=== PATIENT | male | born 1955 | race Caucasian/White ===

== ENCOUNTER 2021-09-29 12:15 | Emergency (ER) | payer MEDICARE | END 2021-09-29 13:00 | disposition home or self-care (01) | LOC: ERS 12:15 | DX: J95.03 Malfunction of tracheostomy stoma (principal); I10 Essential (primary) hypertension; Z85.21 Personal history of malignant neoplasm of larynx; Z79.899 Other long term (current) drug therapy | CPT/HCPCS: 99283 ==

== ENCOUNTER 2021-10-04 21:39 | Emergency (ER) | payer MEDICARE | END 2021-10-05 00:01 | disposition home or self-care (01) | LOC: ERS 21:39 | DX: J95.03 Malfunction of tracheostomy stoma (principal); T17.490A Other foreign object in trachea causing asphyxiation, initial encounter; I10 Essential (primary) hypertension; Z79.899 Other long term (current) drug therapy | CPT/HCPCS: 71045 ==

== ENCOUNTER 2022-02-07 10:15 | Outpatient (CLI) | payer MEDICARE, MEDICAID | END 2022-02-07 10:16 | disposition home or self-care (01) | LOC: PET 10:15 | PROVIDERS: ATTEND Internal Medicine Hematology & Oncology | DX: C32.1 Malignant neoplasm of supraglottis (principal) | CPT/HCPCS: 78815; A9552 ==

== ENCOUNTER 2022-02-18 09:29 | Outpatient (CLI) | payer MEDICARE, MEDICAID | END 2022-02-18 09:30 | disposition home or self-care (01) | LOC: SCSMRI 09:29 | PROVIDERS: ATTEND Internal Medicine Hematology & Oncology | DX: C32.1 Malignant neoplasm of supraglottis (principal); M19.012 Primary osteoarthritis, left shoulder; M25.412 Effusion, left shoulder; M75.112 Incomplete rotator cuff tear or rupture of left shoulder, not specified as traumatic; R93.7 Abnormal findings on diagnostic imaging of other parts of musculoskeletal system ==